=== PATIENT | male | born 1980 | race Caucasian/White ===

== ENCOUNTER 2025-05-19 23:39 | Emergency (ER) | payer BC ==
[~2025-05-19] VITALS: Ht 193 cm; Wt 118.5 kg
[~2025-05-19 23:39] MED LIST: HYDROCODON-ACE1 EA10 PO; ONDANSETRON ODT8 MG PO
--- OUTSIDE RECORDS SUMMARY | 2025-05-19 23:46 | XMS ---
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 EBakari VISIT COUNT (12 MO.) 2 [facility] TOTAL 2 NOTE: Visits indicate total known visits. ED/UCC VISIT TRACKING (12 MO.) 05/19/2025 23:40 [facility] TYPE: Emergency COMPLAINT: - BACK PAIN 05/15/2025 23:26 [facility] [place] TYPE: Emergency COMPLAINT: - ABDOMINAL PAIN DIAGNOSES: - Allergy status to other antibiotic agents - Allergy status to penicillin - Right lower quadrant pain - Unilateral inguinal hernia, without obstruction or gangrene, not specified as recurrent INPATIENT VISIT TRACKING (12 MO.) No inpatient visits to display in this time frame [email or web address]
[2025-05-20] MEDS ORDERED: LIDOCAINE HCL 4% 1 EACH PATCH TD ONE (02:00)
[2025-05-20] MEDS ORDERED: CYCLOBENZAPRINE HCL 10 MG TAB PO ONE (02:00)
[2025-05-20] MEDS ORDERED: DEXAMETHASONE SOD PHOS 10 MG/ML VIAL IV ONE (02:00)
[2025-05-20 02:14] LABS: BLOOD/HGB, URINE TRACE-I (Negative); KETONE, URINE NEGATIVE (Negative); LEUK ESTERASE, URINE NEGATIVE (negative); NITRITE, URINE NEGATIVE (negative)
[2025-05-20 02:19] LABS: BACTERIA, URINE RARE /hpf (negative); CASTS, URINE NONE SEEN \\lpf; CRYSTALS, URINE NONE SEEN (0-1+); EPITHELIAL CELLS, URINE SQUAMOUS 1+ /lpf (0-1+); REFLEX CULTURE, URINE No (No)
[2025-05-20] MEDS ORDERED: KETOROLAC TROMETHAMINE 30 MG/ML VIAL IV ONE (03:30)
[2025-05-20] MEDS ORDERED: OXYCODONE HCL 5 MG TAB PO ONE (03:30)
[2025-05-20] MEDS ORDERED: LIDODERM1 EACH TOP (07:05)
[2025-05-20] MEDS ORDERED: METHYLPREDNISOLO4 M1 PO (07:05)
[2025-05-20] MEDS ORDERED: CYCLOBENZAPRINE10 MG PO (07:05)
[2025-05-20 07:21] VITALS: BP 138/79
[2025-05-20] MEDS ORDERED: LIDOCAINE PATCH REMOVAL 1 EA TD SCH (21:00)
== END 2025-05-20 07:23 | disposition home or self-care (01) ==
LOC: ED 23:39
PROVIDERS: Internal Medicine
DX: S39.012A Strain of muscle, fascia and tendon of lower back, initial encounter (principal); X58.XXXA Exposure to other specified factors, initial encounter; Z88.0 Allergy status to penicillin; Z88.1 Allergy status to other antibiotic agents
CPT/HCPCS: 72131; 74176; 81001; 96374; 96375; 99284-25; A9270; J1100; J1885

== ENCOUNTER 2025-07-21 22:38 | Emergency (ER) | payer BC ==
[~2025-07-21] VITALS: Ht 193 cm; Wt 118.5 kg
[~2025-07-21 22:38] MED LIST changes: +CYCLOBENZAPRINE10 MG PO; +LIDODERM1 EACH TOP; +METHYLPREDNISOLO4 M1 PO
--- OUTSIDE RECORDS SUMMARY | 2025-07-21 22:44 | XMS ---
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 EBakari VISIT COUNT (12 MO.) 4 [facility] TOTAL 4 NOTE: Visits indicate total known visits. ED/C VISIT TRACKING (12 MO.) 07/21/2025 22:38 [facility] TYPE: Emergency COMPLAINT: - SHORTNESS OF BREATH 05/30/2025 10:34 [facility] [place] TYPE: Emergency COMPLAINT: - ABDOMINAL PAIN 05/19/2025 23:40 [facility] [place] TYPE: Emergency COMPLAINT: - BACK PAIN DIAGNOSES: - Allergy status to other antibiotic agents - Allergy status to penicillin - Exposure to other specified factors, initial encounter - Low back pain, unspecified - Strain of muscle, fascia and tendon of lower back, initial encounter 05/15/2025 23:[address] [facility] [place] TYPE: Emergency COMPLAINT: - ABDOMINAL PAIN DIAGNOSES: - Allergy status to other antibiotic agents - Allergy status to penicillin - Right lower quadrant pain - Unilateral inguinal hernia, without obstruction or gangrene, not specified as recurrent INPATIENT VISIT TRACKING (12 MO.) No inpatient visits to display in this time frame [email or web address]
[2025-07-21] MEDS ORDERED: ALBUTEROL/IPRATROPIUM 3 ML NEB INH ONE (23:15)
[2025-07-21] MEDS ORDERED: CYCLOBENZAPRINE HCL 10 MG TAB PO ONE (23:15)
[2025-07-21] MEDS ORDERED: KETOROLAC TROMETHAMINE 60 MG/2 ML VIAL IM ONE (23:15)
[2025-07-21] MEDS ORDERED: LORazepam 1 MG TAB PO ONE (23:30)
[2025-07-21 23:32] LABS: INFLUENZA B NAA NEGATIVE (NEGATIVE); RESPIRATORY SYNCYTIAL VIR NAA NEGATIVE (NEGATIVE)
[2025-07-21] MEDS ORDERED: LEVOFLOXACIN750 MG PO (23:41)
[2025-07-21] MEDS ORDERED: ALBUTEROL SULFATE 8 GM HOME.PACK INH ONE (23:45)
[2025-07-21] MEDS ORDERED: predniSONE 20 MG TAB PO ONE (23:45)
[2025-07-21] MEDS ORDERED: PREDNISONE20 MG PO (23:45)
[2025-07-22 00:01] VITALS: BP 151/91
== END 2025-07-22 00:03 | disposition home or self-care (01) ==
LOC: ED 22:38
PROVIDERS: Family Medicine
DX: J18.9 Pneumonia, unspecified organism (principal); Z88.0 Allergy status to penicillin; Z88.8 Allergy status to other drugs, medicaments and biological substances; Z79.899 Other long term (current) drug therapy
CPT/HCPCS: 71045; 87502; 94640; 96372; 99284-25; A9270-GY; J1885; J7512; U0002